=== PATIENT | female | born 1970 | race Caucasian/White ===

== ENCOUNTER → 2017-04-14 16:57 | Outpatient (CLI) | payer BC | END | disposition home or self-care (01) | LOC: D.MAMMO 09:45 | DX: Z12.31 Encounter for screening mammogram for malignant neoplasm of breast (principal) ==

== ENCOUNTER 2019-05-10 08:00 | Outpatient (CLI) | payer BC | END 2019-05-10 23:59 | disposition home or self-care (01) | LOC: D.MAMMO 08:00 | PROVIDERS: ATTEND Emergency Medicine | DX: Z12.31 Encounter for screening mammogram for malignant neoplasm of breast (principal) ==

== ENCOUNTER → 2020-05-04 11:24 | Outpatient (CLI) | payer BC | END | disposition home or self-care (01) | LOC: D.RAD 11:24 | PROVIDERS: ATTEND Emergency Medicine | DX: M25.471 Effusion, right ankle (principal) ==